=== PATIENT | male | born 1995 | race Caucasian/White ===

== ENCOUNTER 2016-07-31 08:15 | Day surgery (SDC) | payer BC ==
--- NOTE | 2016-08-06 09:33 | OR ---
ADMIT: 07/31/2016 RM/LOC: [facility] MR#: [id number] [address] [address] [address] [place] [id number] Operative/Delivery Room Report SEX: M AGE: 21 : 1995 SURGERY DATE: 07/31/2016 SURGEON: Elvin Kahn MD PREOP DIAGNOSIS: Mandible fracture. POSTOP DIAGNOSIS: Mandible fracture. OPERATION: Removal of arch bars. ANESTHESIA: General oral endotracheal. BLOOD LOSS: 15 mL. COMPLICATIONS: None. DESCRIPTION OF PROCEDURE: With the patient in supine position under general oral endotracheal anesthesia, his anterior face was draped. His mouth was exposed. Arch bars and dentition were cleaned with Betadine and toothbrush. The arch bars were removed. Each of the circumdental wires were cut and removed with wire cutters and wire twisters. The arch bars were then removed. During the procedure, the gingiva oozed with a total of 10-15 mL, but good hemostasis at completion. The gingiva and dentition were then cleansed with toothbrush and Betadine. He tolerated this very well. He emerged from general anesthesia in operative room, was extubated in operating room and transferred to the recovery room in good condition. Elvin Kahn MD/ deb JOB #: [id number] CC: Elvin Kahn, Attending Physician FAMILY PHYSICIAN, Family Physician
--- NOTE | 2016-08-08 09:07 | HP ---
ADMIT: 07/31/2016 RM/LOC: [facility] MR#: [id number] [id number] [facility] [address] VITOR FONSECA [address] [place] [id number] History and Physical SEX: M AGE: 21 : 1995 DATE OF SERVICE: HISTORY OF PRESENT ILLNESS: Vitor is 21 years old. He is admitted for general anesthesia and removal of arch bars that were placed in treatment of mandible fracture. He has no medication allergies. He is on no medicines prior to admission. PAST MEDICAL HISTORY: Includes general anesthesia and application of Doug arch bars and intermaxillary fixation and treatment of mandible fracture on 06/04/2016 for fracture sustained on 06/01/2016. He has done well. REVIEW OF SYSTEMS: Positive for asthma. SOCIAL HISTORY: He drinks caffeine and does smoke cigarettes. He does not drink alcohol. FAMILY HISTORY: No anesthetic complications. No coagulopathy. PHYSICAL EXAMINATION: GENERAL: A 21-year-old. HEENT: PERRL. Ears clear. Nose clear. Mouth, occlusion class I. oropharynx clear. NECK: No masses. No adenopathy. LUNGS: Clear. HEART: Rhythm regular. EXTREMITIES: Normal. IMPRESSION: Mandible fracture, healed. PLAN: Removal of arch bars. Elvin Kahn MD/ deb JOB #: [id number] CC: Elvin Kahn, Attending Physician UNKNOWN, Family Physician
== END 2016-07-31 11:27 | disposition home or self-care (01) ==
LOC: SSS 08:15
PROC: 0WP Anatomical Regions, General, Removal (ICD-10-PCS; principal; 2016-07-31)
DX: S02.609D Fracture of mandible, unspecified, subsequent encounter for fracture with routine healing (principal); J45.909 Unspecified asthma, uncomplicated; F17.200 Nicotine dependence, unspecified, uncomplicated; Z98.890 Other specified postprocedural states; X58.XXXD Exposure to other specified factors, subsequent encounter